=== PATIENT | female | born 1980 | race Caucasian/White ===

== ENCOUNTER → 2020-06-09 15:58 | Outpatient (CLI) | payer OTHER, SELFPAY ==
--- NOTE | ~2020-06-09 | MM_ITS ---
EXAMINATION: MM screening [facility] BI w walker HISTORY: Screening mammogram TECHNIQUE: Craniocaudal and mediolateral oblique 3-D tomosynthesis images were obtained and synthetic 2-D images were generated. CAD analysis was submitted and interpreted. COMPARISON: No prior mammogram is available for comparison at this institution. BREAST PARENCHYMAL COMPOSITION: The breasts are heterogeneously dense, which may obscure small masses . FINDINGS: There is no evidence of suspicious mass, calcification, or architectural distortion to sugg est malignancy in either breast. There has been no suspicious interval change. IMPRESSION: 1. No mammographic evidence of malignancy. 2. Recommend routine screening mammography in one year. BI-RADS Category 1: Negative Reviewed, dictated and finalized at location A.
== END ==
PROVIDERS: PCP Internal Medicine; Visit Provider Nurse Practitioner
DX: Z12.31 Encounter for screening mammogram for malignant neoplasm of breast (principal)
CPT/HCPCS: 77063; 77067

== ENCOUNTER → 2021-06-12 16:05 | Outpatient (CLI) | payer OTHER, SELFPAY ==
--- NOTE | ~2021-06-12 | MM_ITS ---
EXAMINATION: MM screening [facility] BI w walker HISTORY: Screening TECHNIQUE: Craniocaudal and mediolateral oblique 3-D tomosynthesis images were obtained and synthetic 2-D images were generated. CAD analysis was submitted and interpreted. COMPARISON: 06/09/2020 BREAST PARENCHYMAL COMPOSITION: The breasts are heterogeneously dense, which may obscure small masses . FINDINGS: There are developing asymmetries with possible architectural distortion in the upper outer quadrant of both breasts. There are no suspicious calcifications. IMPRESSION: 1. Developing bilateral breast asymmetries with possible architectural distortion, upper outer quadra nt of both breasts. 2. Additional mammographic views and possible breast ultrasound are recommended. BI-RADS Category 0: Incomplete: Needs additional imaging evaluation. Reviewed, dictated and finalized at location A. IMPRESSION: 1. Developing bilateral breast asymmetries with possible architectural distorti on, upper outer quadrant of both breasts. 2. Additional mammographic views and possible breast ultrasound are recommended . BI-RADS Category 0: Incomplete: Needs additional imaging evaluation.
== END ==
PROVIDERS: Visit Provider Nurse Practitioner
DX: R92.8 Other abnormal and inconclusive findings on diagnostic imaging of breast (principal)
CPT/HCPCS: 77063; 77067

== ENCOUNTER → 2021-07-10 07:59 | Outpatient (CLI) | payer OTHER, SELFPAY ==
--- NOTE | ~2021-07-10 | MMUS_ITS ---
EXAMINATION: MM diagnostic chris BI w walker, US breast BI limited HISTORY: Developing bilateral breast asymmetries and possible architectural distortion reported in th e upper outer quadrant of both breasts on 06/12/2021 screening mammogram TECHNIQUE: Additional full field ML and spot ML, MLO and craniocaudal 3-D tomosynthesis images of bot h breasts were performed and synthetic 2-D images were generated. CAD analysis was submitted and inte rpreted. High resolution bilateral upper outer quadrant breast ultrasound was performed. COMPARISON: 06/12/2021, 06/09/2020 bilateral digital screening mammogram examinations FINDINGS: MAMMOGRAPHIC FINDINGS: No suspicious reproducible mass or significant new or developing density is evident since 06/09/2020. ULTRASOUND: No suspicious mass or shadowing of either breast is detected. Right breast: 11:00 7 cm from nipple: Parallel circumscribed 5 x 2.5 x 6 mm hypoechoic lesion with no posterior sha dowing 11:00 6 cm from nipple: Parallel circumscribed 7 x 3 x 5 mm parallel circumscribed hypoechoic lesion with no internal vascularity or posterior shadowing 11:00 6 cm from nipple: Parallel circumscribed hypoechoic 2 x 4.4 x 4.8 mm lesion with central fatty density, no internal vascularity or posterior shadowing, consistent with small benign-appearing lymph node Left breast: 12:00 5 cm from nipple: 2 x 6.4 x 6.5 mm small circumscribed parallel hypoechoic lesion with central fatty density, with no internal vascularity or posterior shadowing, consistent with small benign lymp h node. 3:00 5 cm from nipple: Parallel circumscribed hypoechoic approximately 2 x 3 x 2.5 mm hypoechoic lesi on without posterior features IMPRESSION: 1. No mammographic evidence of malignancy 2. Routine mammographic screening is recommended. BI-RADS Category 2: Benign finding(s). Reviewed, dictated and finalized at location A. IMPRESSION: 1. No mammographic evidence of malignancy 2. Routine mammographic screening is recommended. BI-RADS Category 2: Benign finding(s).
== END ==
PROVIDERS: Visit Provider Nurse Practitioner
DX: N63.11 Unspecified lump in the right breast, upper outer quadrant (principal); N63.25 Unspecified lump in the left breast, overlapping quadrants; N63.14 Unspecified lump in the right breast, lower inner quadrant
CPT/HCPCS: 76642; 77062; 77066; G0279

== ENCOUNTER → 2021-08-12 15:27 | Outpatient (CLI) | payer OTHER, SELFPAY ==
--- NOTE | ~2021-08-12 | MR_ITS ---
EXAMINATION: MR elbow LT wo con DATE: 08/12/2021 16:01 INDICATION: Posttraumatic lateral left elbow pain. TECHNIQUE: Magnetic resonance imaging (MRI) of the left elbow was performed without intravenous contr ast. Sequences included coronal, axial, and sagittal PD-weighted FS FSE and coronal, axial, and sagit zoie PD-weighted FSE. COMPARISON: None FINDINGS: Osseous/other: Normal alignment. Normal marrow signal with no marrow edema, fracture, osteochondral lesion or patho logic marrow replacing process. Tendons: Triceps, biceps brachii and brachialis tendons are normal. Common flexor tendon wad is normal. Mild tendinopathy and very small partial tear at the lateral epicondylar origin of the common flexor tendo n wad. There is mild edema in the proximal extensor digitorum longus muscle belly with along a small longitudinal split tear of the proximal tendon which extends 2.5 cm distally from the lateral epicond ylar origin. Ligaments: The medial and lateral collateral ligament complexes are normal. Cubital tunnel: There is mild thickening and increased signal of the ulnar nerve at the level of the cubital tunnel. No abnormal masses, osteophytes or other impinging lesions at the cubital tunnel. Fluid: Physiologic amount of fluid the elbow joint. IMPRESSION: 1. Mild tendinopathy and mild partial tear at the lateral epicondylar origin of the common extensor t endon wad and proximal extensor digitorum longus tendon. 2. Focal mild thickening and increased signal of the ulnar nerve at the cubital tunnel which could be seen with cubital tunnel syndrome however no impinging lesion is identified. Reviewed, dictated and finalized at location A. [employer] SPECIALIST IMPRESSION: 1. Mild tendinopathy and mild partial tear at the lateral epicondylar origin of the common extensor tendon wad and proximal extensor digitorum longus tendon. 2. Focal mild thickening and increased signal of the ulnar nerve at the cubital tunnel which could be seen with cubital tunnel syndrome however no impinging l esion is identified.
== END ==
PROVIDERS: Visit Provider Orthopaedic Surgery
DX: M25.522 Pain in left elbow (principal); S46.812A Strain of other muscles, fascia and tendons at shoulder and upper arm level, left arm, initial encounter
CPT/HCPCS: 73221

== ENCOUNTER 2021-10-20 00:42 | Day surgery (SDC) | payer OTHER, SELFPAY ==
[2021-10-15 08:24] VITALS: BMI 31.4
--- NOTE | 2021-10-15 08:26 | PC.NURSE ---
Report to the Outpatient Waiting Room, entrance under the green pavilion located off [facility], at time 1200____ on date 10-20-2021_. OR Time: ___1400 . - You and your visitor will be asked a series of questions to screen for COVID 19 for your protection. - A mask is required within the hospital. - Only one visitor is allowed at this time. Patient visitors will be guided where to wait when not with patient. Preoperative COVID Testing Requirements: No COVID Test needed if: (proof is required; if not received patient will have Rapid Test prior to entry) - Patient has received COVID Vaccine at least 14 days prior to procedure date or - Patient has positive COVID test result within last 90 days of surgery date. COVID Test needed if above criteria is not met If not COVID vaccinated a COVID test must be conducted within 72 hours of surgery and patient is asked to isolate self from time of testing until procedure. You will go to the [facility] for your COVID testing. [facility] is located at the corner of [address] [facility]. You will only be called if COVID results are positive and your surgeon may reschedule your elective surgery date. Patients may have clear liquids (water, carbonated beverages, clear teas, apple juice) until 3 hours prior to surgery with a maximum of 20 ounces. - No food from midnight until time of surgery - Infants may have breast milk until 4 hours before surgery, infant formula 6 hours prior to surgery. - Children will be allowed to drink immediately following surgery. If applicable, please bring a bottle or sippy cup to assist with drinking. Juice, water, soda, and popsicles are readily available. For infants on formula, please bring formula the day of surgery. Pacifiers are allowed. Take the following medications with a SIP of water the morning of surgery: Medications to discontinue per physician Date to take last dose Please no make-up, nail maltese, hairspray, perfume, deodorant, or body powder the day of surgery. No jewelry (including any body piercings) or valuables the day of surgery, leave them at home. Please take a shower or bath the night before, or the morning of, surgery with an antibacterial soap. Wear comfortable, loose fitting clothing. Children are encouraged to wear pajamas. - Jewelry must be removed prior to entering the operating room. Rings and piercings that are not removed may be cut off. - The hospital will not accept responsibility for valuables. - Please leave all valuables, including medications, at home the day of surgery. If you are going home after surgery, a licensed bung driver must drive you home. - NO public transportation without another adult. - We recommend that an adult stay with you for 24 hours following discharge. - We also recommend that you do not drive, make important decision, drink alcoholic beverages, or take any drugs that were not prescribed by your health care provider for at least 24 hours after your discharge time. For Pediatric surgeries, we recommend two adults accompany the child home (only one inside the building at this time). Follow any additional instructions given to you from your surgeon. Telephone instructions given to __Patient and asked if any additional questions and then verbalized understanding. Patient advised to call surgeon office or pre surgery nurse liaison [phone] if any additional questions.
[2021-10-20] VITALS (7 sets, daily range): BP systolic 106–130; BP diastolic 56–89; PULSE 66–86; RESP 12–20; TEMP 36.2–37.2; O2SAT 94–100
[2021-10-20] MEDS: ACETAMINOPHEN 500 MG TABLET 1000 MG PO (12:36)
[2021-10-20] MEDS: LACTATED RINGERS 1,000 ML 30 ML IV CONT ×2 (13:00→15:08)
[2021-10-20] MEDS: KETOROLAC 15 MG/ML VIAL (*BKC) IV PUSH (13:23)
--- NOTE | 2021-10-20 13:34 | WPDHPUPDATE1 ---
History and Physical Update Update Date/Time: 10/20/21 13:34 History and Physical has been reviewed, including an updated exam of the patient. There are NO changes in the patient's condition. Risks, benefits, and alternatives have been discussed and questions answered. Patient agrees to proceed with procedure.
--- NOTE | 2021-10-20 13:36 | P.PNAN_ITS ---
Anes - Initial Pre Proc Eval Procedure: Operation Date: 10/20/21 14:00 Proposed Procedures p Debridement Left Lateral Epicondyle - Farzad Doyle MD Date/Time: 10/20/21 13:36 Surgeon: Farzad Doyle MD Pre Op Diagnosis: left lateral epicondylitis Patient Data Age: 41 Gender: F Height: 1.7 m Weight: 90.8 kg Last Vital Signs Temp 37.2 C 10/20/21 13:17 Pulse 68 10/20/21 13:17 Resp 18 10/20/21 13:17 BP 127/89 10/20/21 13:17 Pulse Ox 100 10/20/21 13:17 Allergies Allergy/AdvReac Type Severity Reaction Status Date / Time codeine Allergy Mild Itching Verified 10/20/21 11:50 Home Medications Medication Instructions Recorded Confirmed Type cholecalciferol (vitamin D3) 1,250 1,250 mcg PO WEEKLY 12/18/20 10/20/21 History mcg (50,000 unit) capsule methylphenidate HCl 18 mg 18 mg PO QAM 12/18/20 10/20/21 History tablet,extended release 24 hr Patient hx anesthesia problems: none Family hx anesthesia problems: none Results Review: All pre-operative results and documents have been reviewed as part of the pre-operative evaluation. [facility] Past Medical History Medical History (Updated 10/20/21 @ 13:37 by Maxx Hu MD) Cubital tunnel syndrome left Erb's palsy right arm Left lateral epicondylitis Obesity Surgical History Surgical History H/O shoulder surgery right 1992 left, 2013, Dr. Basilio Slap repair Social History Social History Smoking status: Never smoker Alcohol intake: current Living arrangements: with family Additional occupation/education comments: Teacher Gender identity (if verbalized by the patient): Female Spiritual care concerns: No Anes - Eval Final PreProcedure Day of Procedure 10/20/21 13:36 Patient weight: obese Heart: regular rate and rhythm Lungs: clear to auscultation Airway: Mallampati scale class 1 Neurological: alert and oriented Last oral intake: >/= 8 hours ASA classification: II Emergent: no Anesthetic plan: proceed Anesthesia type and monitoring: general LMA and standard monitoring Results Review: All pre-operative results and documents have been reviewed as part of the pre-operative evaluation. Informed Consent: The patient's anesthetic plan and its attendant risks and benefits were discussed with the patient/family/POA. Questions were solicited and answers provided to the satisfaction of the patient/family/POA.
[2021-10-20] MEDS: ceFAZolin 2 GM/D5W 50 ML 2 GM/50 ML BAG IVPB (14:18)
[2021-10-20] MEDS: BUPIVACAINE/EPINEPHRINE 0.25% 10 ML VIAL 20 ML INFILTRATE (14:44)
--- NOTE | 2021-10-20 15:12 | W.PM.PROC2 ---
Procedure Note - Detailed Date of Procedure 10/20/21 Pre-op Diagnosis left lateral epicondylitis Post-op Diagnosis same Procedure Performed left elbow lateral epicondylar debridement Surgeon Farzad Doyle MD Machine Ii Coremaker Oriana Damon Anesthesia general Description of Procedure The patient was identified and proper site identified. She was taken back to the operating room, transferred to the OR table placing her supine taking care to pad her torso and extremities. After general anesthetic induction and intubation, a nonsterile tourniquet was placed high on the right arm. Right upper extremity was prepped and draped free in usual sterile fashion. 10 cc 1/4% Marcaine and epinephrine solution was infiltrated into the subcutaneous tissue over the lateral epicondyle. The extremity was exsanguinated tourniquet was inflated to 250 millimeters of mercury. Longitudinal incision was made over the common extensor origin. Subcutaneous tissues bluntly dissected down to the tendinous origin. This was released from the lateral epicondyle and then tendon incised longitudinally in line with the fibers. Degenerative tissue was removed from within back to healthier appearing tendon tissue. Prominent portion of the lateral epicondyle was removed with a rongeur. The wound was irrigated with sterile saline. Tendon edges were reapproximated with four 0 Monocryl in a [id number] fashion. The deeper layers of the subcutaneous tissue reapproximated with for Monocryl and then skin with three 0 V lock and tissue adhesive. Sterile dressing was applied. Tourniquet was released. Patient tolerated the procedure well. She was taken back to recovery area in stable condition. There were no known intraoperative complications. Estimated blood loss was negligible. Estimated Blood Loss 1 Drains No Packing No Pathology none sent Complications No immediate complications Condition stable Disposition PACU
--- NOTE | 2021-10-20 17:15 | SUR.PHASEII ---
1715- Patient notified by pharmacy her pain medication nucynta is not covered by her insurance. Called Dr. Doyle and made him aware that medication is not covered and he stated he will order new pain medication for patient to use at home.
== END 2021-10-20 16:58 | disposition home or self-care (01) ==
PROVIDERS: PCP Internal Medicine; Visit Provider Orthopaedic Surgery
PROC: (CPT 24110; principal; 2021-10-20 14:00)
DX: M77.12 Lateral epicondylitis, left elbow (principal); E66.9 Obesity, unspecified; Z68.31 Body mass index [BMI] 31.0-31.9, adult
CPT/HCPCS: 24359; A9270; J0690; J1100; J1885; J2250; J2405; J2704; J3010; J7120

== ENCOUNTER → 2022-07-16 07:17 | Outpatient (CLI) | payer OTHER, SELFPAY ==
--- NOTE | ~2022-07-16 | MM_ITS ---
EXAMINATION: MM screening [facility] BI w walker HISTORY: Screening mammogram TECHNIQUE: Craniocaudal and mediolateral oblique 3-D tomosynthesis images were obtained and synthetic 2-D images were generated. CAD analysis was submitted and interpreted. COMPARISON: 07/10/2021, 06/12/2021, 06/09/2020 BREAST PARENCHYMAL COMPOSITION: There are scattered areas of fibroglandular density. FINDINGS: There is focal asymmetry in the upper outer quadrant right breast. No suspicious mass, calc ification, or architectural distortion are identified in either breast to suggest malignancy. There h as been no suspicious interval change. IMPRESSION: 1. No mammographic evidence of malignancy. 2. Recommend routine screening mammography in one year. BI-RADS Category 2: Benign finding(s). Reviewed, dictated and finalized at location A.
== END ==
PROVIDERS: PCP Internal Medicine; Visit Provider Nurse Practitioner
DX: Z12.31 Encounter for screening mammogram for malignant neoplasm of breast (principal)
CPT/HCPCS: 77063; 77067

== ENCOUNTER → 2023-10-31 08:40 | Outpatient (CLI) | payer OTHER, SELFPAY ==
--- NOTE | ~2023-10-31 | MMUS_ITS ---
EXAMINATION: MM diagnostic chris BI w walker, US breast LT limited HISTORY: Palpable lump in the upper outer quadrant of the left breast TECHNIQUE: Craniocaudal, mediolateral, and mediolateral oblique 3-D tomosynthesis images of the teresitaas ts were performed and synthetic 2-D images were generated. CAD analysis was submitted and interpreted . High resolution limited left breast ultrasound was performed. COMPARISON: 07/16/2022, 07/10/2021, 06/12/2021 BREAST PARENCHYMAL COMPOSITION: There are scattered areas of fibroglandular density. FINDINGS: MAMMOGRAPHIC FINDINGS: No suspicious mass, calcification, or architectural distortion are identified in either breast to sug gest malignancy. There has been no suspicious interval change. No mammographic correlate is identifie d for the reported palpable abnormalities of the left breast. ULTRASOUND: There is no evidence of focal abnormal solid or cystic mass in the vicinity of the reported palpable abnormality of the left breast. IMPRESSION: 1. No specific mammographic or sonographic correlate is identified for the reported palpable abnormal ity of concern in the left breast. Further evaluation at this time should be based on clinical assess ment. Continued follow-up physical examination is recommended. 2. Recommend routine screening mammography in one year. BI-RADS Category 1: Negative Reviewed, dictated and finalized at location A. R SCHOOL DRIVER IMPRESSION: 1. No specific mammographic or sonographic correlate is identified for the repo rted palpable abnormality of concern in the left breast. Further evaluation at this time should be based on clinical assessment. Continued follow-up physical examination is recommended. 2. Recommend routine screening mammography in one year. BI-RADS Category 1: Negative
== END ==
PROVIDERS: PCP Nurse Practitioner; Visit Provider Nurse Practitioner
DX: R92.2 Inconclusive mammogram (principal)
CPT/HCPCS: 76642; 77062; 77066; G0279

== ENCOUNTER 2024-02-20 08:42 | Outpatient (CLI) | payer OTHER, SELFPAY ==
--- NOTE | ~2024-02-20 | MR_ITS ---
MRI of the right foot CLINICAL HISTORY: Pain, hypertrophy of bone TECHNIQUE: Sagittal T1-weighted and STIR images, axial proton-density and proton-density fat-sat imag es, and coronal T1-weighted and proton-density fat-sat images were performed. FINDINGS: Bone marrow signals are unremarkable. No fracture, bone marrow edema, or evidence for osteo myelitis. Joint spaces are intact. No significant degenerative or erosive change. No significant join t effusion. Flexor and extensor tendons are intact. There is probable minimal intermetatarsal bursitis at the fir st interspace region. No Olivares's neuroma evident. No soft tissue mass or fluid collection seen other gage. Plantar fascia intact. IMPRESSION: Minimal intermetatarsal bursitis at the first interspace. Reviewed, dictated and finalized at location .
== END 2024-02-20 08:43 ==
PROVIDERS: PCP Internal Medicine; Visit Provider Podiatrist Foot & Ankle Surgery
DX: M66.371 Spontaneous rupture of flexor tendons, right ankle and foot (principal); M89.371 Hypertrophy of bone, right ankle and foot; M77.51 Other enthesopathy of right foot and ankle
CPT/HCPCS: 73718

== ENCOUNTER 2024-12-12 13:12 | Outpatient (CLI) | payer OTHER, SELFPAY ==
--- NOTE | ~2024-12-12 | MM_ITS ---
EXAMINATION: MM screening [facility] BI w walker HISTORY: Screening TECHNIQUE: Craniocaudal and mediolateral oblique 3-D tomosynthesis images were obtained and synthetic 2-D images were generated. CAD analysis was submitted and interpreted. COMPARISON: 10/31/2023 and dating back to 06/09/2020 BREAST PARENCHYMAL COMPOSITION: The breasts are heterogeneously dense, which may obscure small masses . FINDINGS: Stable parenchymal pattern without suspicious microcalcifications, architectural distortion, discrete masses or significant asymmetry. IMPRESSION: 1. No mammographic evidence of malignancy. 2. Recommend routine screening mammography in one year. BI-RADS Category 1: Negative Reviewed, dictated and finalized at location A.
== END 2024-12-12 13:13 | disposition home or self-care (01) ==
LOC: MICIMG 13:13
PROVIDERS: PCP Nurse Practitioner; Visit Provider Nurse Practitioner
DX: Z12.31 Encounter for screening mammogram for malignant neoplasm of breast (principal)
CPT/HCPCS: 77063; 77067